=== PATIENT | male | born 1975 | race Two or more races ===

== ENCOUNTER 2016-11-19 20:13 | Emergency (ER) | payer OTHER ==
[~2016-11-19] VITALS: Ht 182.9 cm; Wt 117.9 kg
[2016-11-19] MEDS ORDERED: IBUPROFEN600 MG ORAL (21:14)
[2016-11-19 21:24] VITALS: BP 135/82
--- NOTE | 2016-11-20 10:51 | Diagnostic Imaging Report ---
Indications: Fall, right shoulder injury and pain Technique: 3 views right shoulder. Findings: Comparison: None No fracture, dislocation, joint space widening , surrounding soft tissue swelling/foreign body/gas, or other acute changes are identified. IMPRESSION: No evidence of acute injury to the right shoulder.
--- NOTE | 2016-11-23 14:08 | Emergency Room Report ---
History of Present Illness General Chief Complaint: Upper Extremity Injury Source: Patient Present Illness HPI Patient is a 41-year-old male who presented after a fall. The patient having increased right shoulder pain which is worse with movement. Patient denied chest pain or shortness of breath. He denied upper extremity numbness or weakness. He works as a construction millwright. He is right-hand dominant. Allergies: Coded Allergies: No Known Allergies (Unverified , 11/19/16) Patient History Past Medical History: see triage record Reviewed Nursing Documentation: PMH: Agreed, PSxH: Agreed Nursing Documentation-PMH Past Medical History: No Stated History Review of Systems All Other Systems: negative except mentioned in HPI Physical Exam Vital Signs Date Time Temp Pulse Resp B/P Pulse Ox O2 Delivery O2 Flow Rate FiO2 11/19/16 20:37 97.9 84 18 130/75 96 Room Air General Appearance: well appearing, no apparent distress, alert, GCS 15, non- toxic Head: normocephalic, atraumatic ENT: hearing grossly normal, normal voice Neck: full range of motion, supple Respiratory: no respiratory distress, speaking full sentences Gastrointestinal: normal inspection Musculoskeletal: no calf tenderness, decreased range of mation - right shoulder abduction Neurologic: normal gait Psychiatric: mood/affect normal Skin: no rash Medical Decision Making Diagnostic Impression: Primary Impression: Right shoulder strain ER Course Patient presented for shoulder pain. Differential diagnoses included was not limited to fracture, dislocation, a.c. separation, septic joint. X-ray imaging of the right shoulder was ordered due to patient's recent injury.X-ray imaging of 3 view interpreted by me showed normal bony alignment without dislocation or fracture.The patient was placed in a sling. He is given prescription for ibuprofen. He was advised that he may need further imaging and testing with primary care physician for possible rotator cuff injury. Last Vital Signs Date Time Temp Pulse Resp B/P Pulse Ox O2 Delivery O2 Flow Rate FiO2 11/19/16 21:24 98.1 81 14 135/82 98 Room Air Status: improved Disposition: HOME, SELF-CARE Condition: Stable Scripts Ibuprofen* (MOTRIN*) 600 Mg Tablet 600 MG ORAL Q8H Y for For Pain, #30 TAB 0 Refills Prov: Jim Umana 11/19/16 Referrals: JENNY LUND,REFERRING (PCP) Patient Instructions: Shoulder Pain Jim Umana November 23, 2016 14:08
== END 2016-11-19 21:24 | disposition home or self-care (01) ==
LOC: EMR 21:00
DX: S46.911A Strain of unspecified muscle, fascia and tendon at shoulder and upper arm level, right arm, initial encounter (principal); W19.XXXA Unspecified fall, initial encounter; Y93.9 Activity, unspecified; Y92.9 Unspecified place or not applicable
CPT/HCPCS: 99283

== ENCOUNTER 2017-05-12 17:42 | Emergency (ER) | payer OTHER ==
[~2017-05-12] VITALS: Ht 188 cm; Wt 86.2 kg
[~2017-05-12 17:42] MED LIST: IBUPROFEN600 MG ORAL
[2017-05-12 17:50] VITALS: BP 150/89
[2017-05-12] MEDS ORDERED: oxyCODONE HCL/Acetaminophen 5/325mg ORAL ONE (18:15)
--- NOTE | 2017-05-12 19:23 | Emergency Room Report ---
History of Present Illness General Chief Complaint: Pain Source: Patient (Lisset Ozuna) Present Illness HPI 42-year-old male presents to the emergency department complaining of 10 out of 10 in severity pain, swelling, bruising to the left ankle since yesterday. Patient states he somehow twisted his ankle at work and had sudden onset of the symptoms. Patient has been icing and elevating his leg with no relief of his symptoms. Patient reports throbbing constant dull pain and is unable to bear weight. He denies previous injury to this extremity he states he has a history of fracture which required surgical treatment in the right ankle. Patient denies open wounds, bleeding, or changes in temperature to the skin of the affected extremity. Denies numbness tingling or loss of sensation or gross motor movements of the extremities, incontinence of bowel or bladder. Denies CP , Palpitations, LOC, AMS, dizziness, Changes in Vision, Sensation, paresthesias , or a sudden severe headache. (Lisset Ozuna) Allergies: Coded Allergies: No Known Allergies (Unverified , 11/19/16) Patient History Past Medical History: see triage record Past Surgical History: none Pertinent Family History: none Reviewed Nursing Documentation: PMH: Agreed, PSxH: Agreed (Lisset Ozuna) Nursing Documentation-PMH Past Medical History: No Stated History (Lisset Ozuna) Review of Systems All Other Systems: negative except mentioned in HPI (Lisset Ozuna) Physical Exam Vital Signs Date Time Temp Pulse Resp B/P (MAP) Pulse Ox O2 Delivery O2 Flow Rate FiO2 05/12/17 17:42 98.1 88 18 150/89 98 Room Air Sp02 EP Interpretation: reviewed, normal General Appearance: no apparent distress, alert, GCS 15, non-toxic Head: normocephalic, atraumatic Eyes: bilateral eye normal inspection, bilateral eye PERRL ENT: hearing grossly normal, normal voice Neck: full range of motion Respiratory: lungs clear, normal breath sounds, speaking full sentences Cardiovascular #1: regular rate, rhythm, normal capillary refill Cardiovascular #2: 2+ dorsalis pedis (L) Musculoskeletal: back normal, normal range of motion, tender - Left ankle, lateral and medial TTP to only the lateral aspect of the left ankle., Bruising, and swelling noted medially and laterally. PT. is NVI, ROM limited due to pain. no laxity or instability of the ankle. Neurologic: alert, oriented x3, responsive, motor strength/tone normal, sensory intact, speech normal Skin: no rash, warm/dry, well hydrated, other - bruising and swelling to the lateral and medial left ankle. (Lisset Ozuna) Medical Decision Making PA Attestation Dr. Bai is my supervising Physician whom patient management has been discussed with. (Lisset Ozuna) Diagnostic Impression: Primary Impression: Fracture of distal fibula Qualified Codes: S82.822A - Torus fracture of lower end of left fibula, initial encounter for closed fracture ER Course 42-year-old male presents to the emergency department complaining of 10 out of 10 in severity pain, swelling, bruising to the left ankle since yesterday. Patient states he somehow twisted his ankle at work and had sudden onset of the symptoms. Patient has been icing and elevating his leg with no relief of his symptoms. Patient reports throbbing constant dull pain and is unable to bear weight. He denies previous injury to this extremity he states he has a history of fracture which required surgical treatment in the right ankle. Patient denies open wounds, bleeding, or changes in temperature to the skin of the affected extremity. Denies numbness tingling or loss of sensation or gross motor movements of the extremities, incontinence of bowel or bladder. Denies CP , Palpitations, LOC, AMS, dizziness, Changes in Vision, Sensation, paresthesias , or a sudden severe headache. Ddx considered but are not limited to Fracture, dislocation, contusion, Sprain/ Strain/Spasm, just to name a few. Vital signs: are WNL, pt. is afebrile H&PE are most consistent with musculoskeletal injury will perform imaging to r/ o fractures/dislocations. ORDERS: - X-ray Left Ankle : Positive for distal fibula fracture. ED INTERVENTIONS: - Austwell PO - Short Leg posterior with stirrup Splint applied to the left ankle by industrial manufacturing technician. Pt. remains neurovascularly intact. -Patient is provided with crutches and instructed on their use DISCHARGE: At this time pt. is stable for d/c to home. Will provide printed patient care instructions, and any necessary prescriptions. Care plan and follow up instructions have been discussed with the patient prior to discharge. (Lisset Ozuna) Other X-Ray Diagnostic Results Other X-Ray Diagnostic Results : X-Ray ordered: Left Ankle # of Views/Limited Vs Complete: 3 View Indication: Pain EP Interpretation: Yes PA Xray: Interpretation reviewed, by supervising MD, and agrees with findings. Interpretation: no dislocation, other - Distal fibula fracture, soft tissue swelling Impression: Other - ABNORMAL Electronically Signed by: Lisset Ozuna PA-C (Lisset Ozuna) Other X-Ray Diagnostic Results : Electronically Signed by: Ting documentation reviewed by me and is accurate, Kush Bai MD. (Kush Bai M.D.) Last Vital Signs Date Time Temp Pulse Resp B/P (MAP) Pulse Ox O2 Delivery O2 Flow Rate FiO2 05/12/17 17:50 98.1 88 18 150/89 98 Room Air (Lisset Ozuna) Disposition: HOME, SELF-CARE Condition: Stable Scripts Ibuprofen* (MOTRIN*) 600 Mg Tablet 600 MG ORAL THREE TIMES A DAY, #30 TAB 0 Refills Prov: Lisset Ozuna 05/12/17 Hydrocodone Bit/Acetaminophen 7.5-325* (NORCO 7.5-325*) 1 Each Tablet 1 TAB ORAL Q6H Y for For Pain, #15 TAB 0 Refills Prov: Lisset Ozuna 05/12/17 Referrals: JENNY LUND,REFERRING (PCP) Patient Instructions: Undisplaced Fibular Ankle Fracture Treated With Immobilization, Adult Additional Instructions: Take medications as directed. Follow up with a [facility]IT[employer] ATTENDANT in 3-5 days, even if your symptoms have resolved. --Please review list of primary care clinics, if you do not already have a primary care provider Return sooner to ED if new symptoms occur, or current symptoms become worse. Do not drink alcohol, drive, or operate heavy machinery while taking Austwell as this may cause drowsiness. - Please note that this Emergency Department Report was dictated using [employer] touch up worker technology software, occasionally this can lead to erroneous entry secondary to interpretation by the dictation equipment. Lisset Ozuna May 12, 2017 19:22 Kush Bai M.D. May 14, 2017 23:19
[2017-05-12] MEDS ORDERED: NORCO 7.5-3251 EACH ORAL (19:32)
[2017-05-12] MEDS ORDERED: IBUPROFEN600 MG ORAL (19:32)
[2017-05-12 19:36] VITALS: BP 150/89
--- NOTE | 2017-05-13 12:06 | Diagnostic Imaging Report ---
Indication: left ankle pain Comparison: None Findings: 3 views of the left ankle obtained. There is a fracture of the lateral malleolus. There is widening of the space between the talus and medial malleolus suggestive of a deltoid ligament injury or rupture. There is a bimalleolar soft tissue swelling. Impression: Acute lateral malleolar fracture and evidence of deltoid ligament rupture. This is an unstable injury.
== END 2017-05-12 19:36 | disposition home or self-care (01) ==
LOC: EMR 18:35
DX: S82.822A Torus fracture of lower end of left fibula, initial encounter for closed fracture (principal); X50.1XXA Overexertion from prolonged static or awkward postures, initial encounter; Y92.9 Unspecified place or not applicable; Y99.0 Civilian activity done for income or pay
CPT/HCPCS: 29515; 99284

== ENCOUNTER 2020-01-25 13:29 | Emergency (ER) | payer OTHER ==
[~2020-01-25] VITALS: Ht 182.9 cm; Wt 117.9 kg
[~2020-01-25 13:29] MED LIST changes: +NORCO 7.5-3251 EACH ORAL
[2020-01-25] MEDS ORDERED: Ketorolac 30mg Inj IM ONE (14:00)
[2020-01-25] MEDS ORDERED: Methocarbamol 750mg tab ORAL ONE (14:00)
--- NOTE | 2020-01-25 14:02 | Emergency Room Report ---
History of Present Illness General Chief Complaint: Pain Source: Patient Present Illness HPI 44-year-old male with no significant past medical history here complaining of 1 week of right-sided buttocks pain radiating to right leg. Patient denies any fall or injury. Reports the pain is worse with sitting and standing. 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 Complains of minimal tingling right lower extremity. Also reports in the same side he had an ankle operation many years ago with hardware in it however has not seen any biologics specialist since. Reports that sometimes the pain starts in the right ankle and radiates to right buttocks. Has been taking Advil with minimal relief. Denies any saddle paresthesia, urinary bowel incontinence. Denies tobacco smoke, alcohol intake, drug use. Denies fever chills, chest pain, shortness of breath, and other associate symptoms. Patient is neurovascularly intact. Denies generalized or unilateral weakness. Allergies: Coded Allergies: No Known Allergies (Unverified , 11/19/16) COVID-19 Screening Contact w/high risk pt: No Experienced COVID-19 symptoms?: No COVID-19 Testing performed MAILROOM MESSENGER: No Patient History Past Medical History: see triage record Past Surgical History: none Pertinent Family History: none Immunizations: UTD Reviewed Nursing Documentation: PMH: Agreed; PSxH: Agreed Nursing Documentation-PMH Past Medical History: No Stated History Review of Systems All Other Systems: negative except mentioned in HPI Physical Exam Vital Signs Date Time Temp Pulse Resp B/P (MAP) Pulse Ox O2 Delivery O2 Flow Rate FiO2 01/25/20 13:34 98.1 88 17 170/81 (110) 98 Room Air Sp02 EP Interpretation: reviewed, normal General Appearance: no apparent distress, alert, GCS 15, non-toxic Head: normocephalic, atraumatic Eyes: bilateral eye normal inspection, bilateral eye PERRL ENT: hearing grossly normal, normal pharynx, no angioedema, normal voice Neck: full range of motion, supple/symm/no masses Respiratory: chest non-tender, lungs clear, normal breath sounds, no rhonchi, no respiratory distress, no retraction, speaking full sentences Cardiovascular #1: regular rate, rhythm, no edema, no murmur Cardiovascular #2: 2+ dorsalis pedis (R), 2+ dorsalis pedis (L) Gastrointestinal: non tender, soft Rectal: deferred Musculoskeletal: back normal, no calf tenderness, pelvis stable, moves extm spontaneously, gait/station normal, other - Straight leg test positive on the right side Neurologic: alert, motor strength/tone normal, oriented x3, sensory intact, responsive, speech normal Psychiatric: judgement/insight normal, memory normal, mood/affect normal, no suicidal/homicidal ideation Skin: no rash Lymphatic: no adenopathy Medical Decision Making PA Attestation All diagnosis and treatment plans were discussed and reviewed by my supervising physician Dr. Wyatt Diagnostic Impression: Primary Impression: Sciatica of right side Additional Impression: Chronic ankle pain ER Course 44-year-old male with no significant past medical history here complaining of 1 week of right-sided buttocks pain radiating to right leg. Patient denies any fall or injury. Reports the pain is worse with sitting and standing. 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 Complains of minimal tingling right lower extremity. Also reports in the same side he had an ankle operation many years ago with hardware in it however has not seen any biologics specialist since. Reports that sometimes the pain starts in the right ankle and radiates to right buttocks. Has been taking Advil with minimal relief. Denies any saddle paresthesia, urinary bowel incontinence. Denies tobacco smoke, alcohol intake, drug use. Denies fever chills, chest pain, shortness of breath, and other associate symptoms. Patient is neurovascularly intact. Denies generalized or unilateral weakness. Ddx considered but are not limited to: ankle sprain, ankle strain, ankle fracture, ankle contusion, sciatic pain Vital signs: are WNL, pt. is afebrile H&PE are most consistent with: Sciatica right leg, chronic ankle pain with malfunctioning screw ORDERS: ankle x-ray, Robaxin, prednisone, ibuprofen ED INTERVENTIONS: Toradol IM, Robaxin, prednisone p.o. No x-ray of the hip and pelvis needed patient to fall or injure any bones and this is sciatic pain based on clinical presentation of the patient. DISCHARGE: At this time pt. is stable for d/c to home. Will provide printed patient care instructions, and any necessary prescriptions. Care plan and follow up instructions have been discussed with the patient prior to discharge. Patient take medication as directed, follow-up with your primary care provider or biologics specialist for she regarding the detached screw in the right ankle, if worsening symptoms return to the emergency room. Other X-Ray Diagnostic Results Other X-Ray Diagnostic Results : X-Ray ordered: Right ankle # of Views/Limited Vs Complete: 3 View Indication: Pain EP Interpretation: Yes CAIN Xray: Interpretation reviewed, by supervising MD, and agrees with findings. Interpretation: no dislocation, no soft tissue swelling, no fractures Impression: No acute disease Electronically Signed by: Rizwana Carr PA-C Last Vital Signs Date Time Temp Pulse Resp B/P (MAP) Pulse Ox O2 Delivery O2 Flow Rate FiO2 01/25/20 13:34 98.1 88 17 170/81 (110) 98 Room Air Disposition: HOME, SELF-CARE Condition: Stable Scripts Ibuprofen (Ibu) 800 Mg Tablet 800 MG PO TID, #30 TAB Prov: Rizwana Kahn 01/25/20 Prednisone* (PREDNISONE*) 20 Mg Tablet 40 MG ORAL DAILY for 5 Days, #10 TAB Prov: Rizwana Kahn 01/25/20 Methocarbamol* (ROBAXIN-500*) 500 Mg Tablet 500 MG ORAL TID PRN for For Pain, #15 TAB 0 Refills Prov: Rizwana Kahn 01/25/20 Patient Instructions: Ankle Pain, Sciatica, [id number] Additional Instructions: Take medication as directed, follow-up with your biologics specialist, if worsening symptoms return to the emergency room 1 of the hardware in your ankle is loose and you need to see biologics specialist for follow-up. Rizwana Kahn Jan 25, 2020 14:02
[2020-01-25] MEDS ORDERED: IBU800 MG PO (14:03)
[2020-01-25] MEDS ORDERED: PREDNISONE20 MG ORAL (14:03)
[2020-01-25] MEDS ORDERED: ROBAXIN-500MG ORAL (14:03)
[2020-01-25 14:42] VITALS: BP 158/79
--- NOTE | 2020-01-25 14:46 | Diagnostic Imaging Report ---
Indication: Ankle pain Technique: 3 views of the ankle Comparison: none Findings: Surgical hardware is seen reducing old healed distal fibular and medial malleolar fractures. Some heterotopic new bone is seen along the interosseous ligament. No acute fractures. No dislocations. There is slight degenerative narrowing of the medial aspect of the ankle joint. Impression: No acute bony trauma Posttraumatic and degenerative changes, as described
== END 2020-01-25 14:45 | disposition home or self-care (01) ==
LOC: EMR 14:00
DX: M54.31 Sciatica, right side (principal); M25.571 Pain in right ankle and joints of right foot; G89.29 Other chronic pain
CPT/HCPCS: 73610; 96372; J1885; J7512; Z7502; 99283